=== PATIENT | male | born 1940 | race Caucasian/White ===

== ENCOUNTER 2024-02-11 18:34 | Observation (INO) | payer MEDICARE ==
[2024-02-11 18:49] VITALS: RESP 27; TEMP 98.3
--- NOTE | 2024-02-11 19:25 | ERPHSYRPT ---
- History of Present Illness Time Seen by Provider: 02/11/24 19:06 Historian: patient, family () Patient Subjective Stated Complaint: Pt c/o of chest, back and low abdominal pain Triage Nursing Assessment: Pt brought to the ER by his , hypertensive, tachypnea, pt has dementia and just keeps complaining about pain above his pubis, states that he had been complaining of chest pain and back pain prior to coming, hx of triple bypass, pulses normal, edema to the kishan lower ext, no difficulty with breathing noted, doesn't appear to be in any distress Physician History: Reportedly 30 minutes ago pt started with anterior chest pain, back pain and generalized abdominal pain. Last BM was yesterday & wnl. Fever, nausea, vomiting, dysuria all denied. Aspirin Treatment Today: 81 mg x 4, provided by ED Allergies/Adverse Reactions: No Known Drug Allergies Allergy (Verified 02/11/24 18:49) Home Medications: Metoprolol Succinate 100 mg [Toprol Xl 100 MG] 100 mg PO DAILY 02/11/24 [History] Pravastatin Sodium 40 mg PO DAILY 02/11/24 [History] Hx Influenza Vaccination/Date Given: No Hx Pneumococcal Vaccination/Date Given: No Travel Risk - International Travel Have you traveled outside of the country in past 3 weeks: No - Emerging Infectious Disease Are you exhibiting symptoms associated with any current EIDs: No - Review of Systems Constitutional: No Fever, No Chills Ears, Nose, & Throat: No Ear Pain, No Throat Pain Respiratory: No Dyspnea Cardiac: Chest Pain Abdominal/Gastrointestinal: Abdominal Pain Musculoskeletal: Back Pain Neurological: No Headache - Past Medical History Pertinent Past Medical History: Yes Cardiac History: Coronary Artery Disease - Past Surgical History Past Surgical History: Yes Cardiac: CABG, Cardiac Catheterization - Social History Smoking Status: Former smoker Exposure to second hand smoke: Yes Drug Use: none - Social Determinants of Health Will the patient participate in the screening: Declined to provide - Nursing Vital Signs Nursing Vital Signs: Initial Vital Signs Temperature 98.3 F 02/11/24 18:36 Pulse Rate 65 02/11/24 18:36 Respiratory Rate 27 H 02/11/24 18:36 Blood Pressure 154/101 02/11/24 18:36 O2 Sat by Pulse Oximetry 97 02/11/24 18:36 Pain Scale Pain Intensity 4 - Physical Exam General Appearance: alert, anxiety Eye Exam: PERRL/EOMI Ears, Nose, Throat Exam: other (both ears have cerumen occlusion of EAC) Neck Exam: normal inspection Respiratory Exam: lungs clear Cardiovascular Exam: No friction rub Gastrointestinal/Abdomen Exam: normal bowel sounds Extremity Exam: swelling (+1 edema of feet/ankles) Neurologic Exam: alert, cooperative Skin Exam: No cyanosis SpO2 Interpretation: normal SpO2: 97 O2 Delivery: Room Air - Course Nursing assessment & vital signs reviewed: Yes EKG Interpreted by Me: RATE (67), A-fib, Other (QTc = 441) - CT Exams Chest CT Interpretation: Tele-radiologist Report (Unremarkable CT pulmonary angiography. Age indeterminate osteoporotic collapse of the superior endplate of the T6 vertebral body. See rest of report.) Abdomen/Pelvis CT Interpretation: Tele-radiologist Report (Atherosclerotic changes in abdominal aorta and its branches, no critical stenosis detected. No evidence of aneurysmal dilatation or dissection. Lumbar spine shows moderate degenerative changes. Severe osteoporotic collapse of L1 vertebral body. See rest of report.) Ordered Tests: Active Orders 24 hr Category Date Time Status [employer] Counter Person STAT Care 02/11/24 19:24 Active EKG-ER Only STAT Care 02/11/24 19:20 Active EKG-ER Only STAT Care 02/12/24 00:26 Active IV Insertion STAT Care 02/11/24 19:20 Active CTA ABD/PEL W AND/OR W/O CONTR [CT] Stat Exams 02/11/24 19:20 Completed CTA CHEST W AND/OR WO [CT] Stat Exams 02/11/24 19:22 Completed AMYLASE Stat Lab 02/11/24 19:28 Completed CBC W DIFF Stat Lab 02/11/24 19:28 Completed CMP Stat Lab 02/11/24 19:28 Completed D-DIMER QUANTITATIVE Stat Lab 02/11/24 19:28 Completed LIPASE Stat Lab 02/11/24 19:28 Completed MAGNESIUM Stat Lab 02/11/24 19:28 Completed PROTIME WITH INR Stat Lab 02/11/24 19:28 Completed PTT Stat Lab 02/11/24 19:28 Completed TROPONIN Q4H Lab 02/11/24 19:28 Completed TROPONIN Q4H Lab 02/11/24 23:50 Completed TROPONIN Q4H Lab 02/12/24 03:30 Ordered UA W/RFX UR CULTURE Stat Lab 02/11/24 22:34 Completed Transfer Order Routine Transfer 02/12/24 Ordered Medication Summary Generic Name Dose Route Start Last Admin Trade Name Kelly PRN Reason Stop Dose Admin Sodium Chloride 1,000 mls @ 100 mls/hr 02/11/24 19:30 02/11/24 19:32 Sodium Chloride 0.9% 1000 Ml IV 03/12/24 19:29 100 mls/hr .Q10H CHIP Administration Discontinued Medications Generic Name Dose Route Start Last Admin Trade Name Kelly PRN Reason Stop Dose Admin Aspirin 324 mg 02/12/24 01:34 Aspirin 81 Mg Tab.Chew PO 02/12/24 01:35 STAT ONE Lorazepam 0.5 mg 02/11/24 20:17 02/11/24 20:49 Lorazepam 0.5 Mg Tablet PO 02/11/24 20:18 Not Given STAT ONE Lorazepam Confirm 02/11/24 20:19 Lorazepam 1 Mg Tablet Administered 02/11/24 20:20 Dose 1 mg .ROUTE .STK-MED ONE Lorazepam 0.5 mg 02/11/24 20:25 02/11/24 20:25 Lorazepam 1 Mg Tablet PO 02/11/24 20:26 0.5 mg ONCE ONE Administration Lorazepam 1 mg 02/11/24 20:56 02/11/24 21:01 Lorazepam 1 Mg Tablet PO 02/11/24 20:57 1 mg STAT ONE Administration Lorazepam Confirm 02/11/24 21:00 Lorazepam 1 Mg Tablet Administered 02/11/24 21:01 Dose 1 mg .ROUTE .STK-MED ONE Lorazepam 1 mg 02/11/24 22:36 02/11/24 22:41 Lorazepam 2 Mg/1 Ml 2 Mg Vial IV 02/11/24 22:37 1 mg STAT ONE Administration Lorazepam Confirm 02/11/24 22:40 Lorazepam 2 Mg/1 Ml 2 Mg Vial Administered 02/11/24 22:41 Dose 2 mg .ROUTE .STK-MED ONE Nitroglycerin 0.4 mg 02/11/24 19:21 02/11/24 19:31 Nitroglycerin 0.4 Mg (Ed) 0.4 Mg Tab.Subl SL 02/11/24 19:22 0.4 mg STAT ONE Administration Nitroglycerin Confirm 02/11/24 19:27 Nitroglycerin 0.4 Mg (Ed) 0.4 Mg Tab.Subl Administered 02/11/24 19:28 Dose 0.4 mg SL .STK-MED ONE Lab/Rad Data: Laboratory Result Diagrams 02/11/24 19:28 02/11/24 19:28 Laboratory Results 02/11/24 02/11/24 02/11/24 Range/Units 23:50 22:34 19:28 WBC (4.23-9.07) x10^3/uL RBC (4.63-6.08) x10^6/uL Hgb (13.7-17.5) g/dL Hct (40.1-51.0) % MCV (79.0-92.2) fL MCH (25.7-32.2) pg MCHC (32.3-36.5) g/dL RDW (11.6-14.4) % Plt Count (163-337) x10^3/uL MPV (9.4-12.4) fL Gran % (34.0-67.9) % Immature Gran % (Auto) (0.001-0.429) % Nucleat RBC Rel Count (0.00-0.2) % Eos # (Auto) (0.04-0.54) x10^3/uL Immature Gran # (Auto) (0.001-0.031) x10^3u/L Absolute Lymphs (auto) (1.32-3.57) x10^3/uL Absolute Monos (auto) (0.30-0.82) x10^3/uL Absolute Nucleated RBC (0.00-0.012) x10^3u/L Lymphocytes % (21.8-53.1) % Monocytes % (5.3-12.2) % Eosinophils % (0.8-7.0) % Basophils % (0.2-1.2) % Absolute Granulocytes (1.78-5.38) x10^3/uL Basophils # (0.01-0.08) x10^3/uL PT (9.4-12.5) SECONDS INR (0.8-3.0) APTT (25.1-36.5) SECONDS D-Dimer 0.61 H* (0.0-0.50) mg/L Sodium (135-145) mmol/L Potassium (3.5-5.1) mmol/L Chloride (98-107) mmol/L Carbon Dioxide (22-30) mmol/L Anion Gap (5-15) MEQ/L BUN (9-20) mg/dL Creatinine (0.66-1.25) mg/dL Estimated GFR ML/MIN Glucose (74-106) mg/dL Calcium (8.4-10.2) mg/dL Magnesium (1.6-2.3) mg/dL Total Bilirubin (0.2-1.3) mg/dL AST (17-59) U/L ALT (0-50) U/L Alkaline Phosphatase (38-126) U/L Troponin I < 0.012 (0.000-0.033) ng/mL Serum Total Protein (6.3-8.2) g/dL Albumin (3.5-5.0) g/dL Amylase (30-110) U/L Lipase (23-300) U/L Urine Color Yellow (Yellow) Urine Appearance Clear (Clear) Urine pH 6.5 (4.6-8.0) Ur Specific Hawthorn 1.010 (1.005-1.030) Urine Protein Negative (Negative) Urine Glucose (UA) Negative (Negative) mg/dL Urine Ketones Negative (Negative) Urine Blood Trace (Negative) Urine Nitrite Negative (Negative) Urine Bilirubin Negative (Negative) Urine Urobilinogen 2.0 A (0.2) mg/dL Ur Leukocyte Esterase Negative (Negative) U Hyaline Cast (Auto) NONE SEEN (0-2) /LPF Urine Microscopic RBC 3-5 (0-5) /HPF Urine Microscopic WBC 0-2 (0-5) /HPF Ur Epithelial Cells None Seen (None Seen) /HPF Urine Bacteria None Seen (None Seen) /HPF Urine Culture Reflexed NO (NO) 02/11/24 02/11/24 02/11/24 Range/Units 19:28 19:28 19:28 WBC (4.23-9.07) x10^3/uL RBC (4.63-6.08) x10^6/uL Hgb (13.7-17.5) g/dL Hct (40.1-51.0) % MCV (79.0-92.2) fL MCH (25.7-32.2) pg MCHC (32.3-36.5) g/dL RDW (11.6-14.4) % Plt Count (163-337) x10^3/uL MPV (9.4-12.4) fL Gran % (34.0-67.9) % Immature Gran % (Auto) (0.001-0.429) % Nucleat RBC Rel Count (0.00-0.2) % Eos # (Auto) (0.04-0.54) x10^3/uL Immature Gran # (Auto) (0.001-0.031) x10^3u/L Absolute Lymphs (auto) (1.32-3.57) x10^3/uL Absolute Monos (auto) (0.30-0.82) x10^3/uL Absolute Nucleated RBC (0.00-0.012) x10^3u/L Lymphocytes % (21.8-53.1) % Monocytes % (5.3-12.2) % Eosinophils % (0.8-7.0) % Basophils % (0.2-1.2) % Absolute Granulocytes (1.78-5.38) x10^3/uL Basophils # (0.01-0.08) x10^3/uL PT 12.1 (9.4-12.5) SECONDS INR 1.12 (0.8-3.0) APTT 25.9 (25.1-36.5) SECONDS D-Dimer (0.0-0.50) mg/L Sodium 140 (135-145) mmol/L Potassium 4.1 (3.5-5.1) mmol/L Chloride 104 (98-107) mmol/L Carbon Dioxide 29 (22-30) mmol/L Anion Gap 11.4 (5-15) MEQ/L BUN 19 (9-20) mg/dL Creatinine 0.84 (0.66-1.25) mg/dL Estimated GFR 86.0 ML/MIN Glucose 110 H (74-106) mg/dL Calcium 9.2 (8.4-10.2) mg/dL Magnesium 1.8 (1.6-2.3) mg/dL Total Bilirubin 0.90 (0.2-1.3) mg/dL AST 17 (17-59) U/L ALT 9 (0-50) U/L Alkaline Phosphatase 81 (38-126) U/L Troponin I < 0.012 (0.000-0.033) ng/mL Serum Total Protein 6.7 (6.3-8.2) g/dL Albumin 3.7 (3.5-5.0) g/dL Amylase 57 (30-110) U/L Lipase 26 (23-300) U/L Urine Color (Yellow) Urine Appearance (Clear) Urine pH (4.6-8.0) Ur Specific Hawthorn (1.005-1.030) Urine Protein (Negative) Urine Glucose (UA) (Negative) mg/dL Urine Ketones (Negative) Urine Blood (Negative) Urine Nitrite (Negative) Urine Bilirubin (Negative) Urine Urobilinogen (0.2) mg/dL Ur Leukocyte Esterase (Negative) U Hyaline Cast (Auto) (0-2) /LPF Urine Microscopic RBC (0-5) /HPF Urine Microscopic WBC (0-5) /HPF Ur Epithelial Cells (None Seen) /HPF Urine Bacteria (None Seen) /HPF Urine Culture Reflexed (NO) 02/11/24 Range/Units 19:28 WBC 6.7 (4.23-9.07) x10^3/uL RBC 3.37 L (4.63-6.08) x10^6/uL Hgb 10.8 L (13.7-17.5) g/dL Hct 33.2 L (40.1-51.0) % MCV 98.5 H (79.0-92.2) fL MCH 32.0 (25.7-32.2) pg MCHC 32.5 (32.3-36.5) g/dL RDW 13.2 (11.6-14.4) % Plt Count 151 L (163-337) x10^3/uL MPV 10.1 (9.4-12.4) fL Gran % 53.9 (34.0-67.9) % Immature Gran % (Auto) 0.3 (0.001-0.429) % Nucleat RBC Rel Count 0.0 (0.00-0.2) % Eos # (Auto) 0.32 (0.04-0.54) x10^3/uL Immature Gran # (Auto) 0.02 (0.001-0.031) x10^3u/L Absolute Lymphs (auto) 2.15 (1.32-3.57) x10^3/uL Absolute Monos (auto) 0.57 (0.30-0.82) x10^3/uL Absolute Nucleated RBC 0.00 (0.00-0.012) x10^3u/L Lymphocytes % 31.9 (21.8-53.1) % Monocytes % 8.5 (5.3-12.2) % Eosinophils % 4.8 (0.8-7.0) % Basophils % 0.6 (0.2-1.2) % Absolute Granulocytes 3.63 (1.78-5.38) x10^3/uL Basophils # 0.04 (0.01-0.08) x10^3/uL PT (9.4-12.5) SECONDS INR (0.8-3.0) APTT (25.1-36.5) SECONDS D-Dimer (0.0-0.50) mg/L Sodium (135-145) mmol/L Potassium (3.5-5.1) mmol/L Chloride (98-107) mmol/L Carbon Dioxide (22-30) mmol/L Anion Gap (5-15) MEQ/L BUN (9-20) mg/dL Creatinine (0.66-1.25) mg/dL Estimated GFR ML/MIN Glucose (74-106) mg/dL Calcium (8.4-10.2) mg/dL Magnesium (1.6-2.3) mg/dL Total Bilirubin (0.2-1.3) mg/dL AST (17-59) U/L ALT (0-50) U/L Alkaline Phosphatase (38-126) U/L Troponin I (0.000-0.033) ng/mL Serum Total Protein (6.3-8.2) g/dL Albumin (3.5-5.0) g/dL Amylase (30-110) U/L Lipase (23-300) U/L Urine Color (Yellow) Urine Appearance (Clear) Urine pH (4.6-8.0) Ur Specific [place]orn (1.005-1.030) Urine Protein (Negative) Urine Glucose (UA) (Negative) mg/dL Urine Ketones (Negative) Urine Blood (Negative) Urine Nitrite (Negative) Urine Bilirubin (Negative) Urine Urobilinogen (0.2) mg/dL Ur Leukocyte Esterase (Negative) U Hyaline Cast (Auto) (0-2) /LPF Urine Microscopic RBC (0-5) /HPF Urine Microscopic WBC (0-5) /HPF Ur Epithelial Cells (None Seen) /HPF Urine Bacteria (None Seen) /HPF Urine Culture Reflexed (NO) - Progress Progress: improved Progress Note: 02/12/24 00:53 2nd EKG at 0043: rate = 70, A.fib, PVC, QTc = 474. Discussed with DrSkyler: Katie (Spoke with & discussed case with Dr. Wilkes - obs) Will see patient in: hospital (observation) Counseled pt/family regarding: lab results, diagnosis, need for follow-up, rad results Medical Desision Making - Diagnostic Testing Diagnostic test were ordered, analyzed, and reviewed by me: Yes Radiological Interpretation: Teleradiologist Report - Departure Departure Disposition: Observation Clinical Impression: Chest pain, Abdominal pain, L1 vertebral body collapse , New onset A.fib, T6 vertebral body collapse, Anxiety Condition: Stable Critical Care Time: No Referrals: DOCTOR,NO FAMILY [Primary Care Provider] - Follow up/PCP as directed
[2024-02-11] MEDS ORDERED: Nitrostat 0.4 MG (ED) SL ONE (19:27)
[2024-02-11] MEDS ORDERED: Sodium Chloride 0.9% 1000 ML 1,000 ML ONE (19:27)
[2024-02-11 19:31] LABS: Absolute Neutrophil Ct (ANC) 3.63 x10^3/uL (1.78-5.38); BASOPHIL % 0.6 % (0.2-1.2); Basophil (Absolute #) 0.04 x10^3/uL (0.01-0.08); Eosinophil % 4.8 % (0.8-7.0); Eosinophil (Absolute #) 0.32 x10^3/uL (0.04-0.54); Hematocrit 33.2 % (40.1-51.0); Hemoglobin 10.8 g/dL (13.7-17.5); IMMATURE GRAN # 0.02 x10^3u/L (0.001-0.031); IMMATURE GRAN % 0.3 % (0.001-0.429); Lymphocyte (Absolute #) 2.15 x10^3/uL (1.32-3.57); Lymphocytes % 31.9 % (21.8-53.1); Mean Cell Volume 98.5 fL (79.0-92.2); Mean Corpuscular Hgb Concent. 32.5 g/dL (32.3-36.5); Mean Platelet Volume 10.1 fL (9.4-12.4); Monocyte (Absolute #) 0.57 x10^3/uL (0.30-0.82); Monocytes % 8.5 % (5.3-12.2); Neutrophil % 53.9 % (34.0-67.9); Platelet Count 151 x10^3/uL (163-337); Red Blood Count 3.37 x10^6/uL (4.63-6.08); Red Cell Distribution Width 13.2 % (11.6-14.4); White Blood Count 6.7 x10^3/uL (4.23-9.07)
[2024-02-11] MEDS: Nitrostat 0.4 MG (ED) SL ONE (19:31)
[2024-02-11] MEDS: Sodium Chloride 0.9% 1000 ML 1,000 ML IV SCH (19:32)
[2024-02-11 19:40] LABS: INR 1.12 (0.8-3.0); PROTIME 12.1 SECONDS (9.4-12.5); PTT 25.9 SECONDS (25.1-36.5)
[2024-02-11 19:41] LABS: ALBUMIN 3.7 g/dL (3.5-5.0); ANION GAP 11.4 MEQ/L (5-15); BILIRUBIN,TOTAL 0.9 mg/dL (0.2-1.3); Calcium 9.2 mg/dL (8.4-10.2); Creatinine 1 0.84 mg/dL (0.66-1.25); MAGNESIUM 1.8 mg/dL (1.6-2.3); Potassium 4.1 mmol/L (3.5-5.1); Total Protein 6.7 g/dL (6.3-8.2)
[2024-02-11] MEDS ORDERED: Ativan 1 MG ONE ×2 (20:19→21:00)
[2024-02-11] MEDS: Ativan 1 MG PO ONE ×2 (20:25→21:01)
[2024-02-11] MEDS: Ativan 0.5 MG PO ONE (20:49)
[2024-02-11 21:59] VITALS: BP 185/102
[2024-02-11] MEDS ORDERED: Ativan 2 MG/1 ML VIAL ONE (22:40)
[2024-02-11] MEDS: Ativan 2 MG/1 ML VIAL IV ONE (22:41)
[2024-02-11 22:52] LABS: ADD URINE CULTURE? NO (NO); Appearance Clear (Clear); Bacteria None Seen /HPF (None Seen); Bilirubin Negative (Negative); Blood Trace (Negative); Epithelial Cells None Seen /HPF (None Seen); Glucose, Urine Negative (Negative); Hyaline Casts NONE SEEN /LPF (0-2); Ketones Negative (Negative); Leukocyte Esterase Negative (Negative); Nitrite Negative (Negative); Ph 6.5 (4.6-8.0); Protein,Urine Dip Negative (Negative); WBC 0-2 /HPF (0-5)
--- NOTE | 2024-02-11 23:59 | XRAY ---
CLINICAL HISTORY: abdominal pain COMPARISON: None. TECHNIQUE: CT scan of the angiogram abdomen and pelvis was performed with and without IV contrast 80cc of isovue. Coronal and sagittal reconstructive images were also obtained. One of the following dose reduction techniques were utilized for this exam: Automated exposure control, adjustment of the mA and/or kV according to patient size, use of iterative reconstruction. FINDINGS: Angiography The abdominal aorta shows atherosclerotic changes with calcified plaques, otherwise appears normal in caliber and contrast opacification. Mild mural irregularity with tiny eccentric thrombi noted. No evidence of aneurysmal dilatation or dissection. The celiac artery, superior mesenteric and inferior mesenteric arteries show atherosclerotic changes with tiny calcified plaques, otherwise appear normal in caliber and contrast opacification. Bilateral renal arteries show atherosclerotic changes with calcified plaques at origin and in distal aspect of right renal artery, otherwise appear normal in contrast opacification, no significant stenosis. Bilateral common iliac, external iliac and internal iliac arteries show atherosclerotic changes with calcified plaques, otherwise appear normal in caliber and contrast opacification. Abdomen: Sections of lower thorax show borderline cardiomegaly. The liver is of average size. No focal or diffuse parenchymal abnormality. The portal vein, intrahepatic biliary radicals and the bile ducts are normal. The gallbladder is distended. There is no evidence of wall thickening/ pericholecystic collection. The spleen, pancreas, adrenal glands are unremarkable. Spleen shows tiny calcifications. The kidneys are normal in size and shape. No calculi or hydronephrosis. The ascending colon, the transverse colon, the descending colon, visualized small bowel loops are unremarkable. There is no evidence of acute sinusitis. Pelvis: The urinary bladder is unremarkable. The rectosigmoid colon is unremarkable. Bilateral inguinal hernia noted, in which small bowel loops noted on the right and colon loops noted on the left. The prostate appears unremarkable. No evidence of pelvic lymphadenopathy. The lumbar spine shows moderate degenerative changes. Severe osteoporotic collapse of L1 vertebral body with near flattening seen in anterior aspect. Mild superior endplate central collapse of L2 and L3 vertebral bodies also seen. IMPRESSION: 1. Atherosclerotic changes in abdominal aorta and its branches as described above, no critical stenosis detected at present study. 2. Mild mural irregularity with tiny eccentric thrombi in abdominal aorta. No evidence of aneurysmal dilatation or dissection. 3. Bilateral inguinal hernia. Electronically Signed by: Len Rand MD. (02/11/2024 23:54:55 EDT)
--- NOTE | 2024-02-12 00:19 | XRAY ---
CLINICAL HISTORY: tachypnea COMPARISON: None. TECHNIQUE: A CT pulmonary angiogram was performed using contrast with sagittal and coronal reformats. One of the following dose reduction techniques were utilized for this exam: Automated exposure control, adjustment of the mA and/or kV according to patient size, and use of iterative reconstruction. One of these 3D techniques was utilized: Maximum Intensity Pixel (MIP), 3D Reconstructed Images, Volume Rendered Images, Surface Shaded Rendering. DLP: 1032.93 mGy-cm and CTDI: 62.35 mGy FINDINGS: The main pulmonary trunk and right and left pulmonary arteries with the ascending and descending branches are normal. The segmental branches are normal in caliber and show good contrast opacification with no evidence of filling defect/thrombosis. The thoracic Aorta shows mild atherosclerotic changes. A 4 mm calcified nodule was seen in the anterior segment of the right upper lobe. Subpleural reticulations are seen in bilateral lung hammond with posterior basal fibroatelectatic changes. A few sub centimetric Mediastinal and bilateral hilar nodes were noted. No evidence of pleural/pericardial effusion. Heart size is normal. The thoracic spine shows degenerative changes. The age-indeterminate osteoporotic collapse of the superior endplate of the T6 vertebral body was noted. The scanned upper abdomen appears unremarkable. IMPRESSION: 1. Unremarkable CT pulmonary angiography, no evidence of acute thromboembolism 2. A 4 mm calcified nodule in the anterior segment of the right upper lobe. No follow-up is required. 3. Subpleural reticulations in bilateral lung hammond with posterior basal fibroatelectatic changes. Electronically Signed by: Len Rand MD. (02/12/2024 00:15:23 EDT)
[2024-02-12] MEDS ORDERED: Sodium Chloride 0.9% 1000 ML 1,000 ML IV SCH (02:04)
[2024-02-12] MEDS ORDERED: Nitrostat 0.4 MG Tablet SL PRN (02:04)
[2024-02-12 02:30] VITALS: PULSE 75; O2SAT 95
[2024-02-12] MEDS ORDERED: TYLENOL 325 MG PO PRN (03:02)
--- NOTE | 2024-02-12 03:09 | PCM.HP ---
History of Present Illness - Chief Complaint Chief Complaint: chest pain, abdominal pain Date: 02/12/24 History of Present Illness: NOTE: history is limited by patient's dementia. History primarily obtained from chart and discussion with ED provider. was present earlier and spoke to ED provider, but not available currently. 83 y/o M with h/o dementia and prior CABG 10 years ago, who presented from home with chest, back, and diffuse abdominal pain. No recent change in diet or bowel habits per . No recent trauma. 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 noted that patient fell off a roof 10 years ago but had no recent trauma. However, patient was also noted to be in A-fib. Per , this was a new diagnosis; however, she did note that patient was on warfarin after his CABG 10 years ago, but was taken off of the warfarin a little while afterwards, and there was no further follow-up. Per nursing, patient was very agitated in the ED, unable to calm down to allow BP measurements or assessments, and eventually required multiple doses of Ativan. Patient was unresponsive to me during evaluation. - Review of Systems All Other Systems: Unable due to dementia Medications & Allergies Home Medications: Home Medication List Metoprolol Succinate 100 mg [Toprol Xl 100 MG] 100 mg PO DAILY 02/11/24 [H istory Confirmed 02/11/24] Pravastatin Sodium 40 mg PO DAILY 02/11/24 [History Confirmed 02/11/24] Allergies/Adverse Reactions: Allergies Allergy/AdvReac Type Severity Reaction Status Date / Time No Known Drug Allergies Allergy Verified 02/11/24 18:49 - Past Medical History Past Medical History: Yes Neurological History: Dementia Cardiac History: Coronary Artery Disease Comment: pt unable to cooperate and significant other not with patient. - Past Surgical History Past Surgical History: Yes Cardiac History: CABG, Cardiac Catheterization Significant Family History: other (unable to assess) - Social History Smoking Status: Unknown if ever smoked Exposure to second hand smoke: Yes Alcohol: None Drug Use: none - Social Determinants of Health Will the patient participate in the screening: Unable to obtain - Physical Exam Vital Signs: Vital Signs - 24 hr Temp Pulse Resp BP BP Pulse Ox 02/12/24 02:22 75 95 02/12/24 01:58 97 02/11/24 21:00 185/102 07/07/24 20:01 139/98 96 02/11/24 19:31 101 H 176/88 99 02/11/24 19:02 164/91 99 02/11/24 18:36 98.3 F 65 27 H 154/101 97 GEN: Lying in bed in no acute distress NEURO: lethargic, not answering questions, sedated CV: Irregularly irregular rhythm, no edema noted PULM: Clear to auscultation bilaterally, on room air ABD: non-tender, non-distended PSYCH: unable to assess Results - Labs Lab/Micro Results: Lab Results-Last 24 Hours 02/11/24 02/11/24 02/11/24 Range/Units 19:28 19:28 19:28 WBC 6.7 (4.23-9.07) x10^3/uL RBC 3.37 L (4.63-6.08) x10^6/uL Hgb 10.8 L (13.7-17.5) g/dL Hct 33.2 L (40.1-51.0) % MCV 98.5 H (79.0-92.2) fL MCH 32.0 (25.7-32.2) pg MCHC 32.5 (32.3-36.5) g/dL RDW 13.2 (11.6-14.4) % Plt Count 151 L (163-337) x10^3/uL MPV 10.1 (9.4-12.4) fL Gran % 53.9 (34.0-67.9) % Immature Gran % (Auto) 0.3 (0.001-0.429) % Nucleat RBC Rel Count 0.0 (0.00-0.2) % Eos # (Auto) 0.32 (0.04-0.54) x10^3/uL Immature Gran # (Auto) 0.02 (0.001-0.031) x10^3u/L Absolute Lymphs (auto) 2.15 (1.32-3.57) x10^3/uL Absolute Monos (auto) 0.57 (0.30-0.82) x10^3/uL Absolute Nucleated RBC 0.00 (0.00-0.012) x10^3u/L Lymphocytes % 31.9 (21.8-53.1) % Monocytes % 8.5 (5.3-12.2) % Eosinophils % 4.8 (0.8-7.0) % Basophils % 0.6 (0.2-1.2) % Absolute Granulocytes 3.63 (1.78-5.38) x10^3/uL Basophils # 0.04 (0.01-0.08) x10^3/uL PT 12.1 (9.4-12.5) SECONDS INR 1.12 (0.8-3.0) APTT 25.9 (25.1-36.5) SECONDS D-Dimer (0.0-0.50) mg/L Sodium 140 (135-145) mmol/L Potassium 4.1 (3.5-5.1) mmol/L Chloride 104 (98-107) mmol/L Carbon Dioxide 29 (22-30) mmol/L Anion Gap 11.4 (5-15) MEQ/L BUN 19 (9-20) mg/dL Creatinine 0.84 (0.66-1.25) mg/dL Estimated GFR 86.0 ML/MIN Glucose 110 H (74-106) mg/dL Calcium 9.2 (8.4-10.2) mg/dL Magnesium 1.8 (1.6-2.3) mg/dL Total Bilirubin 0.90 (0.2-1.3) mg/dL AST 17 (17-59) U/L ALT 9 (0-50) U/L Alkaline Phosphatase 81 (38-126) U/L Troponin I (0.000-0.033) ng/mL Serum Total Protein 6.7 (6.3-8.2) g/dL Albumin 3.7 (3.5-5.0) g/dL Amylase 57 (30-110) U/L Lipase 26 (23-300) U/L Urine Color (Yellow) Urine Appearance (Clear) Urine pH (4.6-8.0) Ur Specific Van (1.005-1.030) Urine Protein (Negative) Urine Glucose (UA) (Negative) mg/dL Urine Ketones (Negative) Urine Blood (Negative) Urine Nitrite (Negative) Urine Bilirubin (Negative) Urine Urobilinogen (0.2) mg/dL Ur Leukocyte Esterase (Negative) U Hyaline Cast (Auto) (0-2) /LPF Urine Microscopic RBC (0-5) /HPF Urine Microscopic WBC (0-5) /HPF Ur Epithelial Cells (None Seen) /HPF Urine Bacteria (None Seen) /HPF Urine Culture Reflexed (NO) 02/11/24 02/11/24 02/11/24 Range/Units 19:28 19:28 22:34 WBC (4.23-9.07) x10^3/uL RBC (4.63-6.08) x10^6/uL Hgb (13.7-17.5) g/dL Hct (40.1-51.0) % MCV (79.0-92.2) fL MCH (25.7-32.2) pg MCHC (32.3-36.5) g/dL RDW (11.6-14.4) % Plt Count (163-337) x10^3/uL MPV (9.4-12.4) fL Gran % (34.0-67.9) % Immature Gran % (Auto) (0.001-0.429) % Nucleat RBC Rel Count (0.00-0.2) % Eos # (Auto) (0.04-0.54) x10^3/uL Immature Gran # (Auto) (0.001-0.031) x10^3u/L Absolute Lymphs (auto) (1.32-3.57) x10^3/uL Absolute Monos (auto) (0.30-0.82) x10^3/uL Absolute Nucleated RBC (0.00-0.012) x10^3u/L Lymphocytes % (21.8-53.1) % Monocytes % (5.3-12.2) % Eosinophils % (0.8-7.0) % Basophils % (0.2-1.2) % Absolute Granulocytes (1.78-5.38) x10^3/uL Basophils # (0.01-0.08) x10^3/uL PT (9.4-12.5) SECONDS INR (0.8-3.0) APTT (25.1-36.5) SECONDS D-Dimer 0.61 H* (0.0-0.50) mg/L Sodium (135-145) mmol/L Potassium (3.5-5.1) mmol/L Chloride (98-107) mmol/L Carbon Dioxide (22-30) mmol/L Anion Gap (5-15) MEQ/L BUN (9-20) mg/dL Creatinine (0.66-1.25) mg/dL Estimated GFR ML/MIN Glucose (74-106) mg/dL Calcium (8.4-10.2) mg/dL Magnesium (1.6-2.3) mg/dL Total Bilirubin (0.2-1.3) mg/dL AST (17-59) U/L ALT (0-50) U/L Alkaline Phosphatase (38-126) U/L Troponin I < 0.012 (0.000-0.033) ng/mL Serum Total Protein (6.3-8.2) g/dL Albumin (3.5-5.0) g/dL Amylase (30-110) U/L Lipase (23-300) U/L Urine Color Yellow (Yellow) Urine Appearance Clear (Clear) Urine pH 6.5 (4.6-8.0) Ur Specific Van 1.010 (1.005-1.030) Urine Protein Negative (Negative) Urine Glucose (UA) Negative (Negative) mg/dL Urine Ketones Negative (Negative) Urine Blood Trace (Negative) Urine Nitrite Negative (Negative) Urine Bilirubin Negative (Negative) Urine Urobilinogen 2.0 A (0.2) mg/dL Ur Leukocyte Esterase Negative (Negative) U Hyaline Cast (Auto) NONE SEEN (0-2) /LPF Urine Microscopic RBC 3-5 (0-5) /HPF Urine Microscopic WBC 0-2 (0-5) /HPF Ur Epithelial Cells None Seen (None Seen) /HPF Urine Bacteria None Seen (None Seen) /HPF Urine Culture Reflexed NO (NO) 02/11/24 Range/Units 23:50 WBC (4.23-9.07) x10^3/uL RBC (4.63-6.08) x10^6/uL Hgb (13.7-17.5) g/dL Hct (40.1-51.0) % MCV (79.0-92.2) fL MCH (25.7-32.2) pg MCHC (32.3-36.5) g/dL RDW (11.6-14.4) % Plt Count (163-337) x10^3/uL MPV (9.4-12.4) fL Gran % (34.0-67.9) % Immature Gran % (Auto) (0.001-0.429) % Nucleat RBC Rel Count (0.00-0.2) % Eos # (Auto) (0.04-0.54) x10^3/uL Immature Gran # (Auto) (0.001-0.031) x10^3u/L Absolute Lymphs (auto) (1.32-3.57) x10^3/uL Absolute Monos (auto) (0.30-0.82) x10^3/uL Absolute Nucleated RBC (0.00-0.012) x10^3u/L Lymphocytes % (21.8-53.1) % Monocytes % (5.3-12.2) % Eosinophils % (0.8-7.0) % Basophils % (0.2-1.2) % Absolute Granulocytes (1.78-5.38) x10^3/uL Basophils # (0.01-0.08) x10^3/uL PT (9.4-12.5) SECONDS INR (0.8-3.0) APTT (25.1-36.5) SECONDS D-Dimer (0.0-0.50) mg/L Sodium (135-145) mmol/L Potassium (3.5-5.1) mmol/L Chloride (98-107) mmol/L Carbon Dioxide (22-30) mmol/L Anion Gap (5-15) MEQ/L BUN (9-20) mg/dL Creatinine (0.66-1.25) mg/dL Estimated GFR ML/MIN Glucose (74-106) mg/dL Calcium (8.4-10.2) mg/dL Magnesium (1.6-2.3) mg/dL Total Bilirubin (0.2-1.3) mg/dL AST (17-59) U/L ALT (0-50) U/L Alkaline Phosphatase (38-126) U/L Troponin I < 0.012 (0.000-0.033) ng/mL Serum Total Protein (6.3-8.2) g/dL Albumin (3.5-5.0) g/dL Amylase (30-110) U/L Lipase (23-300) U/L Urine Color (Yellow) Urine Appearance (Clear) Urine pH (4.6-8.0) Ur Specific Van (1.005-1.030) Urine Protein (Negative) Urine Glucose (UA) (Negative) mg/dL Urine Ketones (Negative) Urine Blood (Negative) Urine Nitrite (Negative) Urine Bilirubin (Negative) Urine Urobilinogen (0.2) mg/dL Ur Leukocyte Esterase (Negative) U Hyaline Cast (Auto) (0-2) /LPF Urine Microscopic RBC (0-5) /HPF Urine Microscopic WBC (0-5) /HPF Ur Epithelial Cells (None Seen) /HPF Urine Bacteria (None Seen) /HPF Urine Culture Reflexed (NO) - Radiology Impressions Radiology Exams & Impressions: Radiology Procedures Category Date Time Status CTA ABD/PEL W AND/OR W/O CONTR [CT] Stat Exams 02/11/24 19:20 Completed CTA CHEST W AND/OR WO [CT] Stat Exams 02/11/24 19:22 Completed MRI L-SPINE WITHOUT CONTRAST [MRI] Routine Exams 02/12/24 02:04 Stop Req MRI T-SPINE WITHOUT CONTRAST [MRI] Routine Exams 02/12/24 02:04 Stop Req CTA Chest - no PE, age-indeterminate T6 vertebral body superior endplate osteoporotic collapse CTA Abd/Pelvis - Severe osteoporotic collapse of L1 vertebral body with near flattening, and mild superior endplate central collapse of L2 and L3 vertebral bodies - Other Procedures and Tests Respiratory Therapy 02/12/24 02:04 EKG REPEAT IN AM Assessment/Plan (1) Atrial fibrillation Current Visit: Yes Status: Acute Assessment & Plan: 83 y/o M with h/o dementia and CAD, here with atrial fibrillation, reported severe abdominal pain. ## Atrial fibrillation - reportedly new-onset. However, patient has a signi ficant cardiac history, and appears was on blood thinners at some previous point, even if only for perioperateive A-fib. Patient is already on Toprol XL, atlhough this could be just for the CAD. History is very limited. HR has been controlled since arrival. Given apparent severity of dementia, unclear if benefits of anticoagulation outweigh risk (CHADS-VASc 2 for age, 3 if truly hypertensive vs just agitated in ED.) - cardiology consulted - obtain echocardiogram, check thyroid tests for causes - started on ASA 325 in ED; will re-evaluate anticoagulation after discussing patient's fall risk, goals with - continue Toprol XL 100 daily ## Abdominal/pelvic pain - ED concerned that vertebral fractures could be acute, despite lack of trauma, because of osteoporotic changes. MRI would help distinguish age of injuries, but patient is too combative/demented to lie still for MRI. Currently not reporting pain, but patient also was sedated in ED. - cancel MRI for now - if pain continues to be reported tomorrow, can re-evaluate need for further workup ## Dementia - with agitation in ED, likely with different environment and sundowning contribuing to delirium. Currently sedated. - caution with future use of benzodiazepines for risk of paradoxical worsening of delirium in this population ## Elevated BP - unclear if true hypertension; per nursing report, patient unable to calm down previously for accurate BP measurement. - repeat BP now that patient is calmer Code status: Full code Prophylaxis: Lovenox 40 Diet: Regular Code(s): I48.91 - UNSPECIFIED ATRIAL FIBRILLATION Telemedicine Encounter - Telemedicine Encounter Telemedicine Encounter: "The entirety of this encounter was performed via Telemedicine" This visit was performed using real-time audio and video connection between my location and thepatients locationwith the assistance of a surrogateat the patients location. Written or verbal consent was obtained from the patient/guardian to perform this visit usingsynchrGarliktelemedicine technology. Any patient questions regarding the telemedicine interaction were answered.
[2024-02-12] MEDS: BABY ASPIRIN 81 MG CHEW PO ONE (07:38)
[2024-02-12] MEDS: Ativan 2 MG/1 ML VIAL IV ONE (10:13)
--- NOTE | 2024-02-12 11:25 | PCM.CONS ---
History of Present Illness - Date of Consult Date of Encounter: 02/12/24 Consulting Member Certification Manager: FATIMAH WILKINSON MD Requesting Provider: Attending Provider: CALIXTO MAHAN MD Primary Care Provider: PCP: Dr. Torrey Jett in [place], [place] Consent was: Given for this tele-med encounter (His was present during the encounter and granted permission.) - Consult Narrative Reason for Consult: Atrial fibrillation with controlled ventricular response HPI: Patient is a 83M with history of CAD S/P CABG in approx. 2013 who presented with abdominal pain. He was found to be in atrial fibrillation with a controlled ventricular response prompting consultation. Work-up in the emergency included a pulmonary CTA which was negative for a pulmonary embolism in the setting of an elevated D-dimer. TSH was normal. His ventricular response has remained controlled since arrival last night. Patient is unable to give a history in the setting of his dementia. He has been without abdominal discomfort today. He is not known to have symptoms of palpitations or shortness of breath. His denies any angina (throat discomfort) since his CABG. He had no ischemic changes on serial ECGs and troponin-I was negative x2. His denies any history of melena, hematochezia, or hematemesis. Patient has had rare falls occurring twice in the past year. It usually occurs by him missing a chair when he goes to sit. He has not followed with a flame annealing machine setter in many years. He apparently was treated with a short course of warfarin following his CABG presumabley for post-op atrial fibrillation. cc:: The requesting physician will be sent a copy of the consult. Review of Systems - Review of Systems ROS Unobtainable: due to mental status - Past Medical History Past Medical History: Yes Neurological History: Dementia Cardiac History: Coronary Artery Disease, High Cholesterol Comment: pt unable to cooperate and significant other not with patient. - Past Surgical History Past Surgical History: Yes Cardiac History: CABG (in approximately 2013. # of bypasses unknown), Cardiac Catheterization Significant Family History: other (unable to assess) - Social History Smoking Status: Former smoker (He chews tobacco.) Exposure to second hand smoke: Yes Alcohol: None Drug Use: none - Social Determinants of Health Will the patient participate in the screening: Unable to obtain Medications & Allergies Home Medications: Home Medication List Metoprolol Succinate 100 mg [Toprol Xl 100 MG] 100 mg PO DAILY 02/11/24 [History Confirmed 02/11/24] Pravastatin Sodium 40 mg PO DAILY 02/11/24 [History Confirmed 02/11/24] Apixaban [Eliquis] 5 mg PO BID 30 Days #60 tablet 02/12/24 [Rx] Aspirin [Low Dose Aspirin EC] 81 mg PO DAILY 30 Days #30 tablet 02/12/24 [Rx] Sertraline HCl 50 mg [Zoloft 50 mg Tablet] 50 mg PO QHS tablet 02/12/24 [Rx] Allergies/Adverse Reactions: Allergies Allergy/AdvReac Type Severity Reaction Status Date / Time No Known Drug Allergies Allergy Verified 02/11/24 18:49 Exam - Vitals Vital Signs: Vital Signs - 24 hr Temp Pulse Resp BP BP Pulse Ox 02/12/24 02:22 75 95 02/12/24 01:58 97 02/11/24 21:00 185/102 02/11/24 20:01 139/98 96 02/11/24 19:31 101 H 176/88 99 02/11/24 19:02 164/91 99 02/11/24 18:36 98.3 F 65 27 H 154/101 97 General:: mild distress (Alert. Disorientation at baseline.Doesn't like to be touched.) HEENT: EOMI, No JVD Cardiovascular Exam: irregular (Irregularly irregular.), other (Normal S1 and S2. No rubs.), No murmur, No gallop, No edema Respiratory Exam: normal breath sounds SpO2: 95 Gastrointestinal/Abdomen Exam: normal bowel sounds Skin Exam: normal color Extremity Exam: No edema Neurologic: rn advanced II-XII grossly intact, other (Grossly nonfocal.) Results Vital Signs: Vital Signs - 24 hr Temp Pulse Resp BP BP Pulse Ox 02/12/24 02:22 75 95 02/12/24 01:58 97 02/11/24 21:00 185/102 02/11/24 20:01 139/98 96 02/11/24 19:31 101 H 176/88 99 02/11/24 19:02 164/91 99 02/11/24 18:36 98.3 F 65 27 H 154/101 97 Pain Assessment - Last Documented Pain Intensity 4 Intake and Output: Intake & Output 07/0502/10/24 02/11/24 02/12/24 11:59 11:59 11:59 11:59 Intake Total 0 Balance 0 Weight 62.6 kg LAB: I have reviewed the Labs in [employer]. Radiology Exams: Radiology Procedures Category Date Time Status CTA ABD/PEL W AND/OR W/O CONTR [CT] Stat Exams 02/11/24 19:20 Completed CTA CHEST W AND/OR WO [CT] Stat Exams 02/11/24 19:22 Completed ECHO W/2D AND DOPPLER [US] Routine Exams 02/12/24 03:12 Ordered Transthoracic Echocardiogram 02/12/2024: 1. Moderately dilated left atrium. Mildly dilated right atrium. Normal ventricular chamber sizes. 2. Normal left ventricular systolic function without focal wall motion abnormalities. Estimated EF 55%. 3. Normal right ventricular systolic function. 4. There is no significant valvular stenosis or regurgitation by Doppler flow analysis. 5. Mild pulmonary hypertension with an estimated PASP 39 mmHg, 6. Mildly elevated right atrial pressure. 7. No pericardial effusion. Pulmonary CTA 02/11/2024: 1. Unremarkable CT pulmonary angiography, no evidence of acute thromboembolism 2. A 4 mm calcified nodule in the anterior segment of the right upper lobe. No follow-up is required. 3. Subpleural reticulations in bilateral lung hammond with posterior basal fibroatelectatic changes. CTA of Abdomen and Pelvis 02/11/2024: 1. Atherosclerotic changes in abdominal aorta and its branches as described above, no critical stenosis detected at present study. 2. Mild mural irregularity with tiny eccentric thrombi in abdominal aorta. No evidence of aneurysmal dilatation or dissection. 3. Bilateral inguinal hernia. Tracing 1 Attestation: I have reviewed this EKG and interpreted as documented below. EKG Narrative: My ECG interpretations: 02/11/2024 at 1836: Atrial fibrillation at 67 bpm. Incomplete right bundle branch block. 02/12/2024 at 0043: Atrial fib at 70 bpm. Incomplete RBBB. 02/12/2024 at 0931: Wandering baseline. Atrial fib at 73 bpm. Incomplete RBB. No old ECGs available. Multi-Disciplinary Progress Notes: Multi-Disciplinary Progress Notes 02/12/24 02:23 Respiratory Note by Lindsay Acuna Pt is agitated and uncooperative. RT unable to assess patient. SpO2 per YOUNG Sánchez is 95% on room air. Initialized on 02/12/24 02:23 - END OF NOTE Assessment & Plan (1) Atrial fibrillation Current Visit: Yes Status: Acute Onset Date: Unknown Qualifiers: Atrial fibrillation type: unspecified Qualified Code(s): I48.91 - Unspecifi ed atrial fibrillation Assessment & Plan: History suggestive of postop atrial fibrillation in 2013 following his CABG. Current episode of unclear duration as it appears to be asymptomatic. Ventricular response controlled on metoprolol. [id number] score = 4 places patient at an intermediate to high risk for an embolic event. Normal thyroid status. No evidence of a PE on pulmonary CTA. Would benefit from systemic anticoagulation. Recommend starting Eliquis 5 mg by mouth twice daily. Decrease aspirin to 81 mg daily. Continue current dose of metoprolol. OK for discharge from the cardiac standpoint. Follow-up with a flame annealing machine setter post discharge. 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 Troponin negative x2. Continue aspirin, metoprolol, and statin therapy. Code(s): I25.810 - ATHEROSCLEROSIS OF CABG W/O ANGINA PECTORIS (3) Elevated blood pressure reading Current Visit: Yes Status: Resolved Assessment & Plan: Unclear if patient has a history of HTN. [place] to be elevated due to his agitation. Needs to be followed as an outpatient. Target BP < 130/80. Code(s): R03.0 - ELEVATED BLOOD-PRESSURE READING, W/O DIAGNOSIS OF HTN (4) Dementia Current Visit: Yes Status: Chronic Assessment & Plan: At baseline per . Code(s): F03.90 - UNSP DEMENTIA, UNSP SEVERITY, WITHOUT BEH/PSYCH/MOOD/ANX - Encounter Encounter: "The entirety of this encounter was performed via Telemedicine using audio and visual "
[2024-02-12 12:30] LABS: Absolute Neutrophil Ct (ANC) 4.17 x10^3/uL (1.78-5.38); BASOPHIL % 0.6 % (0.2-1.2); Basophil (Absolute #) 0.04 x10^3/uL (0.01-0.08); Eosinophil % 5.3 % (0.8-7.0); Eosinophil (Absolute #) 0.34 x10^3/uL (0.04-0.54); Hematocrit 34.3 % (40.1-51.0); Hemoglobin 11.4 g/dL (13.7-17.5); IMMATURE GRAN # 0.02 x10^3u/L (0.001-0.031); IMMATURE GRAN % 0.3 % (0.001-0.429); Lymphocyte (Absolute #) 1.24 x10^3/uL (1.32-3.57); Lymphocytes % 19.4 % (21.8-53.1); Mean Cell Volume 97.2 fL (79.0-92.2); Mean Corpuscular Hemoglobin 32.3 pg (25.7-32.2); Mean Corpuscular Hgb Concent. 33.2 g/dL (32.3-36.5); Mean Platelet Volume 9.9 fL (9.4-12.4); Monocyte (Absolute #) 0.58 x10^3/uL (0.30-0.82); Monocytes % 9.1 % (5.3-12.2); Neutrophil % 65.3 % (34.0-67.9); Platelet Count 146 x10^3/uL (163-337); Red Blood Count 3.53 x10^6/uL (4.63-6.08); Red Cell Distribution Width 13.2 % (11.6-14.4); White Blood Count 6.4 x10^3/uL (4.23-9.07)
[2024-02-12 12:58] LABS: ALBUMIN 3.6 g/dL (3.5-5.0); ANION GAP 9.1 MEQ/L (5-15); Calcium 9.2 mg/dL (8.4-10.2); Creatinine 1 0.9 mg/dL (0.66-1.25); EST GLOMERULAR FILTRATION RATE 84.2 ML/MIN; Potassium 3.9 mmol/L (3.5-5.1); Total Protein 6.5 g/dL (6.3-8.2)
--- NOTE | 2024-02-12 13:22 | PCM.CONS ---
History of Present Illness - Consult Date of Consultation Date: 02/12/24 Consulting Provider: KASH MERLOS MD - [facility] History of Present Illness: is a 83 year old maleWith advanced dementia who lives at home. Walks without walkers but does not know what is going on according to his family.He is in here for medical reasons. On CT scan his abdomen he was found to have a L1 and L2 compression fracture and I was asked to see him for this.Family says he has had no recent falls. He did have a fall years ago from a roof.Have some back pain but cannot answer questions appropriately. Medications & Allergies Home Medications: Home Medication List Metoprolol Succinate 100 mg [Toprol Xl 100 MG] 100 mg PO DAILY 02/11/24 [History Confirmed 02/11/24] Pravastatin Sodium 40 mg PO DAILY 02/11/24 [History Confirmed 02/11/24] Allergies/Adverse Reactions: Allergies Allergy/AdvReac Type Severity Reaction Status Date / Time No Known Drug Allergies Allergy Verified 02/11/24 18:49 - Past Medical History Past Medical History: Yes Neurological History: Dementia Cardiac History: Coronary Artery Disease Comment: pt unable to cooperate and significant other not with patient. - Past Surgical History Past Surgical History: Yes Cardiac History: CABG, Cardiac Catheterization Significant Family History: other (unable to assess) - Social History Smoking Status: Unknown if ever smoked Exposure to second hand smoke: Yes Alcohol: None Drug Use: none - Social Determinants of Health Will the patient participate in the screening: Unable to obtain - Nursing Vital Signs Nursing Vital Signs: Vital Signs - 24 hr Temp Pulse Resp BP BP Pulse Ox 02/12/24 11:48 95 02/12/24 02:22 75 95 02/12/24 01:58 97 02/11/24 21:00 185/102 02/11/24 20:01 139/98 96 02/11/24 19:31 101 H 176/88 99 02/11/24 19:02 164/91 99 02/11/24 18:36 98.3 F 65 27 H 154/101 97 - Physical Exam SpO2: 95 - Narrative Narrative Physical Exam: Ortho Physical Exam White male lying on his side. Very hard to arouse. Would not answer questions.Does not follow commands. Does have some tenderness when palpating his back but seems to be tender elsewhere to and wants to be left alone. Cannot elicit patellar or Achilles reflexes. Does not voluntarily move his extremities. Cannot test sensation Abdominal CT scan shows an L1 compression fracture with near absent anterior compression. There is L2 compression fracture with about30% anterior compressionThese could be old Assessment/Plan (1) Compression fracture of lumbar vertebra Current Visit: Yes Status: Acute Assessment & Plan: L1 and L2 compression fractures, possibly old Discussed with family that patientCannot Hold still for an MRI to determine whether this is new. Do not think he needs kyphoplasty regardless As he has advanced dementia. Recommend continued nonoperative treatment. Patient may continue walking.If they wish further treatment, would need to see a spine surgeon. Results - Labs Lab/Micro Results: Lab Results-Last 24 Hours 02/11/24 02/11/24 02/11/24 Range/Units 19:28 19:28 19:28 WBC 6.7 (4.23-9.07) x10^3/uL RBC 3.37 L (4.63-6.08) x10^6/uL Hgb 10.8 L (13.7-17.5) g/dL Hct 33.2 L (40.1-51.0) % MCV 98.5 H (79.0-92.2) fL MCH 32.0 (25.7-32.2) pg MCHC 32.5 (32.3-36.5) g/dL RDW 13.2 (11.6-14.4) % Plt Count 151 L (163-337) x10^3/uL MPV 10.1 (9.4-12.4) fL Gran % 53.9 (34.0-67.9) % Immature Gran % (Auto) 0.3 (0.001-0.429) % Nucleat RBC Rel Count 0.0 (0.00-0.2) % Eos # (Auto) 0.32 (0.04-0.54) x10^3/uL Immature Gran # (Auto) 0.02 (0.001-0.031) x10^3u/L Absolute Lymphs (auto) 2.15 (1.32-3.57) x10^3/uL Absolute Monos (auto) 0.57 (0.30-0.82) x10^3/uL Absolute Nucleated RBC 0.00 (0.00-0.012) x10^3u/L Lymphocytes % 31.9 (21.8-53.1) % Monocytes % 8.5 (5.3-12.2) % Eosinophils % 4.8 (0.8-7.0) % Basophils % 0.6 (0.2-1.2) % Absolute Granulocytes 3.63 (1.78-5.38) x10^3/uL Basophils # 0.04 (0.01-0.08) x10^3/uL PT 12.1 (9.4-12.5) SECONDS INR 1.12 (0.8-3.0) APTT 25.9 (25.1-36.5) SECONDS D-Dimer (0.0-0.50) mg/L Sodium 140 (135-145) mmol/L Potassium 4.1 (3.5-5.1) mmol/L Chloride 104 (98-107) mmol/L Carbon Dioxide 29 (22-30) mmol/L Anion Gap 11.4 (5-15) MEQ/L BUN 19 (9-20) mg/dL Creatinine 0.84 (0.66-1.25) mg/dL Estimated GFR 86.0 ML/MIN Glucose 110 H (74-106) mg/dL Calcium 9.2 (8.4-10.2) mg/dL Magnesium 1.8 (1.6-2.3) mg/dL Total Bilirubin 0.90 (0.2-1.3) mg/dL AST 17 (17-59) U/L ALT 9 (0-50) U/L Alkaline Phosphatase 81 (38-126) U/L Troponin I (0.000-0.033) ng/mL Serum Total Protein 6.7 (6.3-8.2) g/dL Albumin 3.7 (3.5-5.0) g/dL Amylase 57 (30-110) U/L Lipase 26 (23-300) U/L TSH 3rd Generation (0.470-4.680) mIU/L Urine Color (Yellow) Urine Appearance (Clear) Urine pH (4.6-8.0) Ur Specific [place] (1.005-1.030) Urine Protein (Negative) Urine Glucose (UA) (Negative) mg/dL Urine Ketones (Negative) Urine Blood (Negative) Urine Nitrite (Negative) Urine Bilirubin (Negative) Urine Urobilinogen (0.2) mg/dL Ur Leukocyte Esterase (Negative) U Hyaline Cast (Auto) (0-2) /LPF Urine Microscopic RBC (0-5) /HPF Urine Microscopic WBC (0-5) /HPF Ur Epithelial Cells (None Seen) /HPF Urine Bacteria (None Seen) /HPF Urine Culture Reflexed (NO) 02/11/24 02/11/24 02/11/24 Range/Units 19:28 19:28 22:34 WBC (4.23-9.07) x10^3/uL RBC (4.63-6.08) x10^6/uL Hgb (13.7-17.5) g/dL Hct (40.1-51.0) % MCV (79.0-92.2) fL MCH (25.7-32.2) pg MCHC (32.3-36.5) g/dL RDW (11.6-14.4) % Plt Count (163-337) x10^3/uL MPV (9.4-12.4) fL Gran % (34.0-67.9) % Immature Gran % (Auto) (0.001-0.429) % Nucleat RBC Rel Count (0.00-0.2) % Eos # (Auto) (0.04-0.54) x10^3/uL Immature Gran # (Auto) (0.001-0.031) x10^3u/L Absolute Lymphs (auto) (1.32-3.57) x10^3/uL Absolute Monos (auto) (0.30-0.82) x10^3/uL Absolute Nucleated RBC (0.00-0.012) x10^3u/L Lymphocytes % (21.8-53.1) % Monocytes % (5.3-12.2) % Eosinophils % (0.8-7.0) % Basophils % (0.2-1.2) % Absolute Granulocytes (1.78-5.38) x10^3/uL Basophils # (0.01-0.08) x10^3/uL PT (9.4-12.5) SECONDS INR (0.8-3.0) APTT (25.1-36.5) SECONDS D-Dimer 0.61 H* (0.0-0.50) mg/L Sodium (135-145) mmol/L Potassium (3.5-5.1) mmol/L Chloride (98-107) mmol/L Carbon Dioxide (22-30) mmol/L Anion Gap (5-15) MEQ/L BUN (9-20) mg/dL Creatinine (0.66-1.25) mg/dL Estimated GFR ML/MIN Glucose (74-106) mg/dL Calcium (8.4-10.2) mg/dL Magnesium (1.6-2.3) mg/dL Total Bilirubin (0.2-1.3) mg/dL AST (17-59) U/L ALT (0-50) U/L Alkaline Phosphatase (38-126) U/L Troponin I < 0.012 (0.000-0.033) ng/mL Serum Total Protein (6.3-8.2) g/dL Albumin (3.5-5.0) g/dL Amylase (30-110) U/L Lipase (23-300) U/L TSH 3rd Generation (0.470-4.680) mIU/L Urine Color Yellow (Yellow) Urine Appearance Clear (Clear) Urine pH 6.5 (4.6-8.0) Ur Specific [place] 1.010 (1.005-1.030) Urine Protein Negative (Negative) Urine Glucose (UA) Negative (Negative) mg/dL Urine Ketones Negative (Negative) Urine Blood Trace (Negative) Urine Nitrite Negative (Negative) Urine Bilirubin Negative (Negative) Urine Urobilinogen 2.0 A (0.2) mg/dL Ur Leukocyte Esterase Negative (Negative) U Hyaline Cast (Auto) NONE SEEN (0-2) /LPF Urine Microscopic RBC 3-5 (0-5) /HPF Urine Microscopic WBC 0-2 (0-5) /HPF Ur Epithelial Cells None Seen (None Seen) /HPF Urine Bacteria None Seen (None Seen) /HPF Urine Culture Reflexed NO (NO) 02/11/24 02/12/24 02/12/24 Range/Units 23:50 00:00 12:26 WBC (4.23-9.07) x10^3/uL RBC (4.63-6.08) x10^6/uL Hgb (13.7-17.5) g/dL Hct (40.1-51.0) % MCV (79.0-92.2) fL MCH (25.7-32.2) pg MCHC (32.3-36.5) g/dL RDW (11.6-14.4) % Plt Count (163-337) x10^3/uL MPV (9.4-12.4) fL Gran % (34.0-67.9) % Immature Gran % (Auto) (0.001-0.429) % Nucleat RBC Rel Count (0.00-0.2) % Eos # (Auto) (0.04-0.54) x10^3/uL Immature Gran # (Auto) (0.001-0.031) x10^3u/L Absolute Lymphs (auto) (1.32-3.57) x10^3/uL Absolute Monos (auto) (0.30-0.82) x10^3/uL Absolute Nucleated RBC (0.00-0.012) x10^3u/L Lymphocytes % (21.8-53.1) % Monocytes % (5.3-12.2) % Eosinophils % (0.8-7.0) % Basophils % (0.2-1.2) % Absolute Granulocytes (1.78-5.38) x10^3/uL Basophils # (0.01-0.08) x10^3/uL PT (9.4-12.5) SECONDS INR (0.8-3.0) APTT (25.1-36.5) SECONDS D-Dimer (0.0-0.50) mg/L Sodium (135-145) mmol/L Potassium (3.5-5.1) mmol/L Chloride (98-107) mmol/L Carbon Dioxide (22-30) mmol/L Anion Gap (5-15) MEQ/L BUN (9-20) mg/dL Creatinine (0.66-1.25) mg/dL Estimated GFR ML/MIN Glucose (74-106) mg/dL Calcium (8.4-10.2) mg/dL Magnesium (1.6-2.3) mg/dL Total Bilirubin (0.2-1.3) mg/dL AST (17-59) U/L ALT (0-50) U/L Alkaline Phosphatase (38-126) U/L Troponin I < 0.012 < 0.012 (0.000-0.033) ng/mL Serum Total Protein (6.3-8.2) g/dL Albumin (3.5-5.0) g/dL Amylase (30-110) U/L Lipase (23-300) U/L TSH 3rd Generation 2.868 (0.470-4.680) mIU/L Urine Color (Yellow) Urine Appearance (Clear) Urine pH (4.6-8.0) Ur Specific [place] (1.005-1.030) Urine Protein (Negative) Urine Glucose (UA) (Negative) mg/dL Urine Ketones (Negative) Urine Blood (Negative) Urine Nitrite (Negative) Urine Bilirubin (Negative) Urine Urobilinogen (0.2) mg/dL Ur Leukocyte Esterase (Negative) U Hyaline Cast (Auto) (0-2) /LPF Urine Microscopic RBC (0-5) /HPF Urine Microscopic WBC (0-5) /HPF Ur Epithelial Cells (None Seen) /HPF Urine Bacteria (None Seen) /HPF Urine Culture Reflexed (NO) 02/12/24 02/12/24 Range/Units 12:26 12:26 WBC 6.4 (4.23-9.07) x10^3/uL RBC 3.53 L (4.63-6.08) x10^6/uL Hgb 11.4 L (13.7-17.5) g/dL Hct 34.3 L (40.1-51.0) % MCV 97.2 H (79.0-92.2) fL MCH 32.3 H (25.7-32.2) pg MCHC 33.2 (32.3-36.5) g/dL RDW 13.2 (11.6-14.4) % Plt Count 146 L (163-337) x10^3/uL MPV 9.9 (9.4-12.4) fL Gran % 65.3 (34.0-67.9) % Immature Gran % (Auto) 0.3 (0.001-0.429) % Nucleat RBC Rel Count 0.0 (0.00-0.2) % Eos # (Auto) 0.34 (0.04-0.54) x10^3/uL Immature Gran # (Auto) 0.02 (0.001-0.031) x10^3u/L Absolute Lymphs (auto) 1.24 L (1.32-3.57) x10^3/uL Absolute Monos (auto) 0.58 (0.30-0.82) x10^3/uL Absolute Nucleated RBC 0.00 (0.00-0.012) x10^3u/L Lymphocytes % 19.4 L (21.8-53.1) % Monocytes % 9.1 (5.3-12.2) % Eosinophils % 5.3 (0.8-7.0) % Basophils % 0.6 (0.2-1.2) % Absolute Granulocytes 4.17 (1.78-5.38) x10^3/uL Basophils # 0.04 (0.01-0.08) x10^3/uL PT (9.4-12.5) SECONDS INR (0.8-3.0) APTT (25.1-36.5) SECONDS D-Dimer (0.0-0.50) mg/L Sodium 140 (135-145) mmol/L Potassium 3.9 (3.5-5.1) mmol/L Chloride 106 (98-107) mmol/L Carbon Dioxide 29 (22-30) mmol/L Anion Gap 9.1 (5-15) MEQ/L BUN 14 (9-20) mg/dL Creatinine 0.90 (0.66-1.25) mg/dL Estimated GFR 84.2 ML/MIN Glucose 100 (74-106) mg/dL Calcium 9.2 (8.4-10.2) mg/dL Magnesium (1.6-2.3) mg/dL Total Bilirubin 1.00 (0.2-1.3) mg/dL AST 19 (17-59) U/L ALT 9 (0-50) U/L Alkaline Phosphatase 80 (38-126) U/L Troponin I (0.000-0.033) ng/mL Serum Total Protein 6.5 (6.3-8.2) g/dL Albumin 3.6 (3.5-5.0) g/dL Amylase (30-110) U/L Lipase (23-300) U/L TSH 3rd Generation (0.470-4.680) mIU/L Urine Color (Yellow) Urine Appearance (Clear) Urine pH (4.6-8.0) Ur Specific [place] (1.005-1.030) Urine Protein (Negative) Urine Glucose (UA) (Negative) mg/dL Urine Ketones (Negative) Urine Blood (Negative) Urine Nitrite (Negative) Urine Bilirubin (Negative) Urine Urobilinogen (0.2) mg/dL Ur Leukocyte Esterase (Negative) U Hyaline Cast (Auto) (0-2) /LPF Urine Microscopic RBC (0-5) /HPF Urine Microscopic WBC (0-5) /HPF Ur Epithelial Cells (None Seen) /HPF Urine Bacteria (None Seen) /HPF Urine Culture Reflexed (NO) - Radiology Impressions Radiology Exams & Impressions: Radiology Procedures Category Date Time Status CTA ABD/PEL W AND/OR W/O CONTR [CT] Stat Exams 02/11/24 19:20 Completed CTA CHEST W AND/OR WO [CT] Stat Exams 02/11/24 19:22 Completed ECHO W/2D AND DOPPLER [US] Routine Exams 02/12/24 03:12 Taken
[2024-02-12] MEDS: Ecotrin 325 MG PO SCH (14:56)
[2024-02-12] MEDS: ZOCOR 20MG PO SCH (14:57)
[2024-02-12] MEDS: Toprol Xl 100 MG PO SCH (14:57)
[2024-02-12] MEDS: ENOXAPARIN SODIUM SQ SCH (17:05)
--- NOTE | 2024-02-12 18:28 | PCM.DS ---
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 reportedly new-onset. However, patient has a significant cardiac history, and appears was on blood thinners at some previous point, even if only for perioperateive A-fib. Patient is already on Toprol XL, although this could be just for the CAD. History is very limited. HR has been controlled since arrival. Abdominal pain - CTA Chest - no PE, age-indeterminate T6 vertebral body superior endplate osteoporotic collapse. 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 - ED concerned that vertebral fractures could be acute, despite lack of trauma, because of osteoporotic changes. MRI would help distinguish age of injuries, but patient is too combative/demented to lie still for MRI. Currently not reporting pain. Ortho consulted with recs for non-operative treatment. Patient is able to continue current weight bearing and ambulation. If family wishes for further treatment patient will need to follow up with spine surgeon. Cardiology consulted regarding AFIB with recs to continue current regimen of metoprolol, will add eliquis and 81mg ASA. Patient to follow up with cardiology closely. Discharge Note New Diagnosis: AFIB New Medications: Eliquis 5mg po BID Follow Up: PCP/Cards Latest Assessment & Plan (1) Atrial fibrillation Current Visit: Yes Status: Acute Assessment & Plan: 83 y/o M with h/o dementia and CAD, here with atrial fibrillation, reported severe abdominal pain. ## Atrial fibrillation - reportedly new-onset. However, patient has a significant cardiac history, and appears was on blood thinners at some previous point, even if only for perioperateive A-fib. Patient is already on Toprol XL, atlhough this could be just for the CAD. History is very limited. HR has been controlled since arrival. Given apparent severity of dementia, unclear if benefits of anticoagulation outweigh risk (CHADS-VASc 2 for age, 3 if truly hypertensive vs just agitated in ED.) - cardiology consulted - obtain echocardiogram, check thyroid tests for causes - started on ASA 325 in ED; will re-evaluate anticoagulation after discussing patient's fall risk, goals with - continue Toprol XL 100 daily ## Abdominal/pelvic pain - ED concerned that vertebral fractures could be acute, despite lack of trauma, because of osteoporotic changes. MRI would help distinguish age of injuries, but patient is too combative/demented to lie still for MRI. Currently not reporting pain, but patient also was sedated in ED. - cancel MRI for now - if pain continues to be reported tomorrow, can re-evaluate need for further workup ## Dementia - with agitation in ED, likely with different environment and owning contribuing to delirium. Currently sedated. - caution with future use of benzodiazepines for risk of paradoxical worsening of delirium in this population ## Elevated BP - unclear if true hypertension; per nursing report, patient u nable to calm down previously for accurate BP measurement. - repeat BP now that patient is calmer I spent 35 minutes alre-by-yauq with the patient on the day of discharge performing discharge exam, discussing hospital stay and discharge instructions with patient and caregivers, preparation of discharge records, prescriptions & referral forms and addressing any questions/concerns the patient had as documented above. - Vitals & Intake/Output Vital Signs: Vital Signs Temperature 98.3 F 02/11/24 18:36 Pulse Rate 75 02/12/24 02:22 Respiratory Rate 27 H 02/11/24 18:36 Blood Pressure 185/102 02/11/24 21:00 O2 Sat by Pulse Oximetry 95 02/12/24 13:22 Intake & Output: Intake & Output 02/10/24 02/11/24 02/12/24 02/13/24 11:59 11:59 11:59 11:59 Intake Total 0 120 Balance 0 120 Weight 62.6 kg - Lab Result Diagrams: 02/12/24 12:26 02/12/24 12:26 Lab Results-Last 24 Hrs: Lab Results-Last 24 Hours 02/11/24 02/11/24 02/11/24 Range/Units 19:28 19:28 19:28 WBC 6.7 (4.23-9.07) x10^3/uL RBC 3.37 L (4.63-6.08) x10^6/uL Hgb 10.8 L (13.7-17.5) g/dL Hct 33.2 L (40.1-51.0) % MCV 98.5 H (79.0-92.2) fL MCH 32.0 (25.7-32.2) pg MCHC 32.5 (32.3-36.5) g/dL RDW 13.2 (11.6-14.4) % Plt Count 151 L (163-337) x10^3/uL MPV 10.1 (9.4-12.4) fL Gran % 53.9 (34.0-67.9) % Immature Gran % (Auto) 0.3 (0.001-0.429) % Nucleat RBC Rel Count 0.0 (0.00-0.2) % Eos # (Auto) 0.32 (0.04-0.54) x10^3/uL Immature Gran # (Auto) 0.02 (0.001-0.031) x10^3u/L Absolute Lymphs (auto) 2.15 (1.32-3.57) x10^3/uL Absolute Monos (auto) 0.57 (0.30-0.82) x10^3/uL Absolute Nucleated RBC 0.00 (0.00-0.012) x10^3u/L Lymphocytes % 31.9 (21.8-53.1) % Monocytes % 8.5 (5.3-12.2) % Eosinophils % 4.8 (0.8-7.0) % Basophils % 0.6 (0.2-1.2) % Absolute Granulocytes 3.63 (1.78-5.38) x10^3/uL Basophils # 0.04 (0.01-0.08) x10^3/uL PT 12.1 (9.4-12.5) SECONDS INR 1.12 (0.8-3.0) APTT 25.9 (25.1-36.5) SECONDS D-Dimer (0.0-0.50) mg/L Sodium 140 (135-145) mmol/L Potassium 4.1 (3.5-5.1) mmol/L Chloride 104 (98-107) mmol/L Carbon Dioxide 29 (22-30) mmol/L Anion Gap 11.4 (5-15) MEQ/L BUN 19 (9-20) mg/dL Creatinine 0.84 (0.66-1.25) mg/dL Estimated GFR 86.0 ML/MIN Glucose 110 H (74-106) mg/dL Calcium 9.2 (8.4-10.2) mg/dL Magnesium 1.8 (1.6-2.3) mg/dL Total Bilirubin 0.90 (0.2-1.3) mg/dL AST 17 (17-59) U/L ALT 9 (0-50) U/L Alkaline Phosphatase 81 (38-126) U/L Troponin I (0.000-0.033) ng/mL Serum Total Protein 6.7 (6.3-8.2) g/dL Albumin 3.7 (3.5-5.0) g/dL Amylase 57 (30-110) U/L Lipase 26 (23-300) U/L Free T4 (0.78-2.19) ng/dL TSH 3rd Generation (0.470-4.680) mIU/L Urine Color (Yellow) Urine Appearance (Clear) Urine pH (4.6-8.0) Ur Specific Benkelman (1.005-1.030) Urine Protein (Negative) Urine Glucose (UA) (Negative) mg/dL Urine Ketones (Negative) Urine Blood (Negative) Urine Nitrite (Negative) Urine Bilirubin (Negative) Urine Urobilinogen (0.2) mg/dL Ur Leukocyte Esterase (Negative) U Hyaline Cast (Auto) (0-2) /LPF Urine Microscopic RBC (0-5) /HPF Urine Microscopic WBC (0-5) /HPF Ur Epithelial Cells (None Seen) /HPF Urine Bacteria (None Seen) /HPF Urine Culture Reflexed (NO) 02/11/24 02/11/24 02/11/24 Range/Units 19:28 19:28 22:34 WBC (4.23-9.07) x10^3/uL RBC (4.63-6.08) x10^6/uL Hgb (13.7-17.5) g/dL Hct (40.1-51.0) % MCV (79.0-92.2) fL MCH (25.7-32.2) pg MCHC (32.3-36.5) g/dL RDW (11.6-14.4) % Plt Count (163-337) x10^3/uL MPV (9.4-12.4) fL Gran % (34.0-67.9) % Immature Gran % (Auto) (0.001-0.429) % Nucleat RBC Rel Count (0.00-0.2) % Eos # (Auto) (0.04-0.54) x10^3/uL Immature Gran # (Auto) (0.001-0.031) x10^3u/L Absolute Lymphs (auto) (1.32-3.57) x10^3/uL Absolute Monos (auto) (0.30-0.82) x10^3/uL Absolute Nucleated RBC (0.00-0.012) x10^3u/L Lymphocytes % (21.8-53.1) % Monocytes % (5.3-12.2) % Eosinophils % (0.8-7.0) % Basophils % (0.2-1.2) % Absolute Granulocytes (1.78-5.38) x10^3/uL Basophils # (0.01-0.08) x10^3/uL PT (9.4-12.5) SECONDS INR (0.8-3.0) APTT (25.1-36.5) SECONDS D-Dimer 0.61 H* (0.0-0.50) mg/L Sodium (135-145) mmol/L Potassium (3.5-5.1) mmol/L Chloride (98-107) mmol/L Carbon Dioxide (22-30) mmol/L Anion Gap (5-15) MEQ/L BUN (9-20) mg/dL Creatinine (0.66-1.25) mg/dL Estimated GFR ML/MIN Glucose (74-106) mg/dL Calcium (8.4-10.2) mg/dL Magnesium (1.6-2.3) mg/dL Total Bilirubin (0.2-1.3) mg/dL AST (17-59) U/L ALT (0-50) U/L Alkaline Phosphatase (38-126) U/L Troponin I < 0.012 (0.000-0.033) ng/mL Serum Total Protein (6.3-8.2) g/dL Albumin (3.5-5.0) g/dL Amylase (30-110) U/L Lipase (23-300) U/L Free T4 (0.78-2.19) ng/dL TSH 3rd Generation (0.470-4.680) mIU/L Urine Color Yellow (Yellow) Urine Appearance Clear (Clear) Urine pH 6.5 (4.6-8.0) Ur Specific Benkelman 1.010 (1.005-1.030) Urine Protein Negative (Negative) Urine Glucose (UA) Negative (Negative) mg/dL Urine Ketones Negative (Negative) Urine Blood Trace (Negative) Urine Nitrite Negative (Negative) Urine Bilirubin Negative (Negative) Urine Urobilinogen 2.0 A (0.2) mg/dL Ur Leukocyte Esterase Negative (Negative) U Hyaline Cast (Auto) NONE SEEN (0-2) /LPF Urine Microscopic RBC 3-5 (0-5) /HPF Urine Microscopic WBC 0-2 (0-5) /HPF Ur Epithelial Cells None Seen (None Seen) /HPF Urine Bacteria None Seen (None Seen) /HPF Urine Culture Reflexed NO (NO) 02/11/24 02/12/24 02/12/24 Range/Units 23:50 00:00 12:26 WBC (4.23-9.07) x10^3/uL RBC (4.63-6.08) x10^6/uL Hgb (13.7-17.5) g/dL Hct (40.1-51.0) % MCV (79.0-92.2) fL MCH (25.7-32.2) pg MCHC (32.3-36.5) g/dL RDW (11.6-14.4) % Plt Count (163-337) x10^3/uL MPV (9.4-12.4) fL Gran % (34.0-67.9) % Immature Gran % (Auto) (0.001-0.429) % Nucleat RBC Rel Count (0.00-0.2) % Eos # (Auto) (0.04-0.54) x10^3/uL Immature Gran # (Auto) (0.001-0.031) x10^3u/L Absolute Lymphs (auto) (1.32-3.57) x10^3/uL Absolute Monos (auto) (0.30-0.82) x10^3/uL Absolute Nucleated RBC (0.00-0.012) x10^3u/L Lymphocytes % (21.8-53.1) % Monocytes % (5.3-12.2) % Eosinophils % (0.8-7.0) % Basophils % (0.2-1.2) % Absolute Granulocytes (1.78-5.38) x10^3/uL Basophils # (0.01-0.08) x10^3/uL PT (9.4-12.5) SECONDS INR (0.8-3.0) APTT (25.1-36.5) SECONDS D-Dimer (0.0-0.50) mg/L Sodium (135-145) mmol/L Potassium (3.5-5.1) mmol/L Chloride (98-107) mmol/L Carbon Dioxide (22-30) mmol/L Anion Gap (5-15) MEQ/L BUN (9-20) mg/dL Creatinine (0.66-1.25) mg/dL Estimated GFR ML/MIN Glucose (74-106) mg/dL Calcium (8.4-10.2) mg/dL Magnesium (1.6-2.3) mg/dL Total Bilirubin (0.2-1.3) mg/dL AST (17-59) U/L ALT (0-50) U/L Alkaline Phosphatase (38-126) U/L Troponin I < 0.012 < 0.012 (0.000-0.033) ng/mL Serum Total Protein (6.3-8.2) g/dL Albumin (3.5-5.0) g/dL Amylase (30-110) U/L Lipase (23-300) U/L Free T4 (0.78-2.19) ng/dL TSH 3rd Generation 2.868 (0.470-4.680) mIU/L Urine Color (Yellow) Urine Appearance (Clear) Urine pH (4.6-8.0) Ur Specific Benkelman (1.005-1.030) Urine Protein (Negative) Urine Glucose (UA) (Negative) mg/dL Urine Ketones (Negative) Urine Blood (Negative) Urine Nitrite (Negative) Urine Bilirubin (Negative) Urine Urobilinogen (0.2) mg/dL Ur Leukocyte Esterase (Negative) U Hyaline Cast (Auto) (0-2) /LPF Urine Microscopic RBC (0-5) /HPF Urine Microscopic WBC (0-5) /HPF Ur Epithelial Cells (None Seen) /HPF Urine Bacteria (None Seen) /HPF Urine Culture Reflexed (NO) 02/12/24 02/12/24 02/12/24 Range/Units 12:26 12:26 12:26 WBC 6.4 (4.23-9.07) x10^3/uL RBC 3.53 L (4.63-6.08) x10^6/uL Hgb 11.4 L (13.7-17.5) g/dL Hct 34.3 L (40.1-51.0) % MCV 97.2 H (79.0-92.2) fL MCH 32.3 H (25.7-32.2) pg MCHC 33.2 (32.3-36.5) g/dL RDW 13.2 (11.6-14.4) % Plt Count 146 L (163-337) x10^3/uL MPV 9.9 (9.4-12.4) fL Gran % 65.3 (34.0-67.9) % Immature Gran % (Auto) 0.3 (0.001-0.429) % Nucleat RBC Rel Count 0.0 (0.00-0.2) % Eos # (Auto) 0.34 (0.04-0.54) x10^3/uL Immature Gran # (Auto) 0.02 (0.001-0.031) x10^3u/L Absolute Lymphs (auto) 1.24 L (1.32-3.57) x10^3/uL Absolute Monos (auto) 0.58 (0.30-0.82) x10^3/uL Absolute Nucleated RBC 0.00 (0.00-0.012) x10^3u/L Lymphocytes % 19.4 L (21.8-53.1) % Monocytes % 9.1 (5.3-12.2) % Eosinophils % 5.3 (0.8-7.0) % Basophils % 0.6 (0.2-1.2) % Absolute Granulocytes 4.17 (1.78-5.38) x10^3/uL Basophils # 0.04 (0.01-0.08) x10^3/uL PT (9.4-12.5) SECONDS INR (0.8-3.0) APTT (25.1-36.5) SECONDS D-Dimer (0.0-0.50) mg/L Sodium 140 (135-145) mmol/L Potassium 3.9 (3.5-5.1) mmol/L Chloride 106 (98-107) mmol/L Carbon Dioxide 29 (22-30) mmol/L Anion Gap 9.1 (5-15) MEQ/L BUN 14 (9-20) mg/dL Creatinine 0.90 (0.66-1.25) mg/dL Estimated GFR 84.2 ML/MIN Glucose 100 (74-106) mg/dL Calcium 9.2 (8.4-10.2) mg/dL Magnesium (1.6-2.3) mg/dL Total Bilirubin 1.00 (0.2-1.3) mg/dL AST 19 (17-59) U/L ALT 9 (0-50) U/L Alkaline Phosphatase 80 (38-126) U/L Troponin I (0.000-0.033) ng/mL Serum Total Protein 6.5 (6.3-8.2) g/dL Albumin 3.6 (3.5-5.0) g/dL Amylase (30-110) U/L Lipase (23-300) U/L Free T4 1.21 (0.78-2.19) ng/dL TSH 3rd Generation (0.470-4.680) mIU/L Urine Color (Yellow) Urine Appearance (Clear) Urine pH (4.6-8.0) Ur Specific [place]kel[place] (1.005-1.030) Urine Protein (Negative) Urine Glucose (UA) (Negative) mg/dL Urine Ketones (Negative) Urine Blood (Negative) Urine Nitrite (Negative) Urine Bilirubin (Negative) Urine Urobilinogen (0.2) mg/dL Ur Leukocyte Esterase (Negative) U Hyaline Cast (Auto) (0-2) /LPF Urine Microscopic RBC (0-5) /HPF Urine Microscopic WBC (0-5) /HPF Ur Epithelial Cells (None Seen) /HPF Urine Bacteria (None Seen) /HPF Urine Culture Reflexed (NO) - Radiology Exams Ordered Rad Exams-Entire Visit: Radiology Procedures Category Date Time Status CTA ABD/PEL W AND/OR W/O CONTR [CT] Stat Exams 02/11/24 19:20 Completed CTA CHEST W AND/OR WO [CT] Stat Exams 02/11/24 19:22 Completed ECHO W/2D AND DOPPLER [US] Routine Exams 02/12/24 03:12 Taken - Procedures and Test Procedures and Tests throughout Hospitalization: Therapy Orders & Screens 02/12/24 02:04 EKG REPEAT IN AM Comment: Oxygen Nasal Cannula 2 lpm Comment: Discharge Exam General Appearance: no apparent distress Neurologic Exam: alert, confusion, agitation, uncooperative Eye Exam: PERRL Ears, Nose, Throat Exam: normal ENT inspection Neck Exam: normal inspection Respiratory Exam: normal breath sounds, lungs clear Cardiovascular Exam: irregular Gastrointestinal/Abdomen Exam: soft, normal bowel sounds Male Genitalia Exam: deferred Rectal Exam: deferred Back Exam: normal inspection Extremity Exam: normal inspection Skin Exam: normal color Final Diagnosis/Problem List - Final Discharge Diagnosis/Problem (1) Atrial fibrillation Current Visit: Yes Status: Acute Code(s): I48.91 - UNSPECIFIED ATRIAL FIBRILLATION (2) Dementia Current Visit: Yes Status: Chronic Code(s): F03.90 - UNSP DEMENTIA, UNSP SEVERITY, WITHOUT BEH/PSYCH/MOOD/ANX (3) Abdominal pain Current Visit: Yes Status: Resolved Code(s): R10.9 - UNSPECIFIED ABDOMINAL PAIN (4) Elevated blood pressure reading Current Visit: Yes Status: Resolved Code(s): R03.0 - ELEVATED BLOOD-PRESSURE READING, W/O DIAGNOSIS OF HTN (5) Anxiety Current Visit: Yes Status: Chronic Code(s): F41.9 - ANXIETY DISORDER, UNSPECIFIED - Discharge Disposition: Home, Self-Care Condition: Stable Prescriptions: New Apixaban [Eliquis] 5 mg PO BID 30 Days #60 tablet Aspirin [Low Dose Aspirin EC] 81 mg PO DAILY 30 Days #30 tablet Sertraline HCl 50 mg [Zoloft 50 mg Tablet] 50 mg PO QHS tablet Continue Metoprolol Succinate 100 mg [Toprol Xl 100 MG] 100 mg PO DAILY Pravastatin Sodium 40 mg PO DAILY Instructions: Atrial fibrillation - Discharge instructions Follow up with: ALICIA NEWTON [CONSULTING PHYSICIAN] - Call for Appointment
[2024-02-12] MEDS ORDERED: ZOLOFT 50 MG TABLET PO SCH (22:00)
== END 2024-02-12 20:00 | disposition home or self-care (01) ==
LOC: ED 18:34 → MED SURG 02-12 02:00
PROVIDERS: ADMIT Internal Medicine; ATTEND Internal Medicine
DX: I48.91 Unspecified atrial fibrillation (principal); I25.10 Atherosclerotic heart disease of native coronary artery without angina pectoris; R10.9 Unspecified abdominal pain; I25.810 Atherosclerosis of coronary artery bypass graft(s) without angina pectoris; R03.0 Elevated blood-pressure reading, without diagnosis of hypertension; F03.90 Unspecified dementia, unspecified severity, without behavioral disturbance, psychotic disturbance, mood disturbance, and anxiety; S32.010A Wedge compression fracture of first lumbar vertebra, initial encounter for closed fracture; S32.020A Wedge compression fracture of second lumbar vertebra, initial encounter for closed fracture; Z79.899 Other long term (current) drug therapy; Z95.0 Presence of cardiac pacemaker
CPT/HCPCS: 36000; 36415; 71275; 74174; 80053; 81001; 82150; 83690; 83735; 84439; 84443; 84484; 85025; 85379; 85610; 85730; 93005; 93041; 93306; 96374; 96375; 99203; 99285; G0378; J2060; Q3014; A9270-GY